=== PATIENT | male | born 1950 | race Caucasian/White ===

== ENCOUNTER 2017-05-04 12:27 | Emergency (ER) | payer OTHER, MEDICARE ==
[~2017-05-04] VITALS: Ht 162.6 cm; Wt 89.6 kg
[~2017-05-04 12:27] MED LIST: ACID CONTROL150 MG PO; AMITRIPTYLINE H10 MG PO; CARDIZEM CD,CA300 MG PO; CARDIZEM CD,CA360 MG PO; CARDIZEM CD300 MG PO; CARDIZEM30 MG; CEPHALEXIN500 MG PO; CITALOPRAM HBR20 MG PO; CLONAZEPAM0.5 MG PO; CLONAZEPAM1 MG PO; DILAUDID2 MG PO; ELAVIL25 MG PO; FLOMAX0.4 MG PO; KEFLEX500 MG PO; KETOROLAC TROME10 MG PO; LIPITOR20 MG PO; LISINOPRIL40 MG PO; METOPROLOL SUC100 MG PO; METOPROLOL TAR100 MG PO; OMEPRAZOLE20 MG PO; OXYCODONE-ACET1 EACH PO; PERCOCET 5/31 TABLET PO; PLAVIX75 MG PO; PROMETHAZINE HC25 M1 PO; PROMETHAZINE12.5 M1 PO; TOPROL XL6.25 MG PO; TORADOL10 MG PO; ZESTRIL,PRINIVI40 MG PO; ZESTRIL20 MG; ZOFRAN ODT4 MG PO; ZOFRAN4 MG PO
[2017-05-04 13:07] LABS: HEMATOCRIT 47.1 % (38.0-50.0); MCV 97.1 FL (86-99); MEAN PLAT.VOLUME 9.3 uM^3 (9.0-12.4); PLATELET COUNT 185 K/uL (156-360); RBC DIS.WIDTH-SD 46.4 % (39-53); RED BLOOD COUNT 4.85 M/uL (4.00-5.50); WHITE BLOOD COUNT 10.1 K/uL (4.1-10.2)
[2017-05-04 13:21] LABS: CHLORIDE 106 mEq/L (99-109); POTASSIUM 4.1 mEq/L (3.7-5.4); SODIUM 138 mEq/L (136-147)
[2017-05-04 13:23] LABS: GLUCOSE 152 mg/dL (70-99)
[2017-05-04 13:24] LABS: ANION GAP 11 MEQ/L (2-14)
[2017-05-04 13:27] LABS: GFR ESTIMATE (CALCULATED) > 59 mL/min/
[2017-05-04 13:28] LABS: UREA NITROGEN (BUN) 16 mg/dL (9-23)
[2017-05-04 15:56] LABS: ADD MIUA? YES; BILIRUBIN NEGATIVE; BLOOD MODERATE; COLOR YELLOW ((YELLOW)); GLUCOSE (STRIP) NEGATIVE; KETONES NEGATIVE; LEUKOCYTES NEGATIVE; NITRITE NEGATIVE; PROTEIN (STRIP) 30; SPECIFIC GRAVITY 1.019 (1.000-1.030); UROBILINOGEN 0.2 MG/DL (0.2-1.0)
[2017-05-04 16:08] LABS: BACTERIA NONE SEEN /HPF; EPITHELIAL CELLS NONE SEEN /HPF; MUCUS 2+ /LPF; RED BLOOD CELLS 20-30 /HPF (0-5); UCUL ADDED? NO; UNCLASSIFIED CRYSTALS 2+ /HPF; WHITE BLOOD CELLS 0-5 /HPF (0-5)
[2017-05-04] MEDS ORDERED: ZOFRAN ODT4 MG PO (16:51)
[2017-05-04] MEDS ORDERED: TORADOL10 MG PO (16:51)
[2017-05-04] MEDS ORDERED: PERCOCET 5/31 TABLET PO (16:51)
[2017-05-04 17:03] VITALS: BP 159/89
== END 2017-05-04 17:03 | disposition home or self-care (01) ==
LOC: EME 12:27
PROVIDERS: Personal Emergency Response Attendant
DX: N13.39 Other hydronephrosis (principal); N20.2 Calculus of kidney with calculus of ureter; Z87.442 Personal history of urinary calculi; I10 Essential (primary) hypertension; K21.9 Gastro-esophageal reflux disease without esophagitis; Z95.5 Presence of coronary angioplasty implant and graft; Z88.6 Allergy status to analgesic agent; Z88.8 Allergy status to other drugs, medicaments and biological substances; Z87.891 Personal history of nicotine dependence
CPT/HCPCS: 74176; 80048; 81003; 85027; 99281; 99284; J1170; J1885; J2550